=== PATIENT | male | born 1990 | race Hispanic/Latino ===

== ENCOUNTER 2019-05-21 20:51 | Emergency (ER) | payer SELFPAY ==
[~2019-05-21] VITALS: Ht 162.6 cm; Wt 104.3 kg
[2019-05-21 21:42] LABS: ABG PCO2 43 mmHg (41-51); ABG PH 7.36 (7.31-7.41); ABG PO2 90 mmHg (80-105)
[2019-05-21 21:43] LABS: ABG HCO3 25 mmol/L (23-28)
== END 2019-05-21 22:24 | disposition home or self-care (01) ==
LOC: ER 20:51
DX: R42 Dizziness and giddiness (principal); T58.8X1A Toxic effect of carbon monoxide from other source, accidental (unintentional), initial encounter; Y92.008 Other place in unspecified non-institutional (private) residence as the place of occurrence of the external cause
CPT/HCPCS: 36415; 36600; 82805; 83605; 99283

== ENCOUNTER 2020-05-22 18:44 | Emergency (ER) | payer SELFPAY ==
[~2020-05-22] VITALS: Ht 162.6 cm; Wt 108.9 kg
[2020-05-22] MEDS ORDERED: IBUPROFEN 600 MG TAB PO STA (19:01)
[2020-05-22 19:07] VITALS: BP 129/74
[2020-05-22] MEDS ORDERED: IBUPROFEN 600 MG TAB ONE (19:09)
--- NOTE | 2020-05-22 19:29 | Emergency Department Note ---
History of Present Illnes History of Present Illness Chief Complaint: COVID PUI History of Present Illness This is a 30 year old male in from home with complaints of shortness of breath, fever, cough and headache over the last week. Patient reports he tested positive for Covid a week ago and he is still having symptoms. Patient is slightly febrile at 100.6 and tachypneic and tachycardic. Oxygen level 96% on room air.. Historian: Patient Arrival Mode: Car Non Clinical Advisor Required: No Onset (how long ago): week(s) (1) Location: ALL OVER Quality: COUGH, SOB, FEVER, BODY ACHES, HEADACHES Radiation: Reports non-radiation Severity: moderate Onset quality: gradual Duration (how long): week(s) (1) Timing of current episode: constant Progression: unchanged Chronicity: new Context: Reports recent illness (COVID 19 POSITIVE ONE WEEK AGO) Relieving factors: none Exacerbating factors: movement Associated symptoms: Reports cough, Reports fever/chills, Reports headaches, Reports shortness of breath Treatments prior to arrival: none Past Medical/Family History Physician Review I have reviewed the patient's past medical and family history. Any updates have been documented here. Past Medical History Recent Fever: Yes Clinical Suspicion of Infectio: Yes New/Unexplained Change in Ment: No Past Medical History: None Past Surgical History: None Social History Smoking Cessation: Never Smoker Counseling Performed: No Alcohol Use: Occasional Any Illegal Drug Use: No Other Last Tetanus: UTD Any Pre-Existing Lines (PICC,: No Review of Systems Review of Systems Constitutional: Reports as per HPI EENTM: Reports no symptoms Cardiovascular: Reports no symptoms Respiratory: Reports as per HPI Gastrointestinal: Reports no symptoms Genitourinary: Reports no symptoms Musculoskeletal: Reports no symptoms Integumentary: Reports no symptoms Neurological: Reports no symptoms Psychological: Reports no symptoms Endocrine: Reports no symptoms Hematological/Lymphatic: Reports no symptoms Physical Exam Related Data Allergies: Coded Allergies: No Known Allergies (Unverified , 05/21/19) Triage Vital Signs Vital Signs Date Time Temp Pulse Resp B/P (MAP) Pulse Ox O2 Delivery O2 Flow Rate FiO2 05/22/20 18:47 100.6 129 36 146/75 96 Room Air Vital signs reviewed: Yes Physical Exam CONSTITUTIONAL Constitutional: Present well-developed, Present well-nourished; Absent distressed HENT HENT: Present normocephalic, Present atraumatic, Present oropharynx clear/moist, Present nose normal HENT L/R: Present left ext ear normal, Present right ext ear normal EYES Eyes: Reports PERRL, Reports conjunctivae normal NECK Neck: Present ROM normal PULMONARY Pulmonary: Present effort normal, Present respiratory distress (MILD TACHYPNEA RR 29), Present rhonchi (ALL 4 LUNG BRUNNER) CARDIOVASCULAR Cardiovascular: Present regular rhythm, Present heart sounds normal, Present capillary refill normal, Present tachycardia (130) GASTROINTESTINAL Abdominal: Present soft, Present nontender, Present bowel sounds normal GENITOURINARY Genitourinary: Present exam deferred SKIN Skin: Present warm, Present dry MUSCULOSKELETAL Musculoskeletal: Present ROM normal NEUROLOGICAL Neurological: Present alert, Present oriented x 3, Present no gross motor or sensory deficits PSYCHOLOGICAL Psychological: Present mood/affect normal, Present judgement normal Results Laboratory Laboratory Laboratory Tests Test 05/22/20 20:30 05/22/20 20:21 05/22/20 19:45 Arterial Blood pH 7.42 (7.35-7.45) Arterial Blood Partial Pressure CO2 38 mmHg (35-45) Arterial Blood Partial Pressure O2 97 mmHg (80-105) Arterial Blood HCO3 24 mmol/L (22-26) Arterial Blood Total CO2 25 Arterial Blood Oxygen Saturation 98.0 % (95-98) Arterial Blood Base Excess 0.0 mmol/L (-2 - 3) FiO2 32 % Lactic Acid Level 1.5 mmol/L (0.5-2.0) White Blood Count 11.29 x10e3/uL (4.8-10.8) Red Blood Count 5.41 x10e6/uL (4.3-5.7) Hemoglobin 14.9 g/dL (14.0-18.0) Hematocrit 46.3 % (38.2-49.6) Mean Corpuscular Volume 85.6 fL (81-99) Mean Corpuscular Hemoglobin 27.5 pg (28-32) Mean Corpuscular Hemoglobin Concent 32.2 g/dL (31-35) Red Cell Distribution Width 14.3 % (11.7-14.4) Platelet Count 235 x10e3/uL (140-360) Neutrophils (%) (Auto) 77.8 % (38.7-80.0) Lymphocytes (%) (Auto) 17.4 % (18.0-39.1) Monocytes (%) (Auto) 3.6 % (4.4-11.3) Eosinophils (%) (Auto) 0.0 % (0.0-6.0) Basophils (%) (Auto) 0.2 % (0.0-1.0) Neutrophils # (Auto) 8.8 (2.1-6.9) Lymphocytes # (Auto) 2.0 (1.0-3.2) Monocytes # (Auto) 0.4 (0.2-0.8) Eosinophils # (Auto) 0.0 (0.0-0.4) Basophils # (Auto) 0.0 (0.0-0.1) Absolute Immature Granulocyte (auto 0.11 x10e3/uL (0-0.1) Sodium Level 141 mmol/L (136-145) Potassium Level 3.5 mmol/L (3.5-5.1) Chloride Level 104 mmol/L (98-107) Carbon Dioxide Level 24 mmol/L (22-29) Anion Gap 16.5 mmol/L (8-16) Blood Urea Nitrogen 14 mg/dL (7-26) Creatinine 0.87 mg/dL (0.72-1.25) Estimat Glomerular Filtration Rate > 60 ML/MIN (60-) BUN/Creatinine Ratio 16 (6-25) Glucose Level 131 mg/dL (74-118) Calcium Level 8.0 mg/dL (8.4-10.2) Total Bilirubin 0.3 mg/dL (0.2-1.2) Aspartate Amino Transf (AST/SGOT) 53 IU/L (5-34) Alanine Aminotransferase (ALT/SGPT) 156 IU/L (0-55) Alkaline Phosphatase 67 IU/L (40-150) Creatine Kinase 197 IU/L (30-200) Creatine Kinase MB 0.50 ng/mL (0-5.0) Troponin I 0.011 ng/mL (0-0.300) Total Protein 7.6 g/dL (6.5-8.1) Albumin 3.6 g/dL (3.5-5.0) Globulin 4.0 g/dL (2.3-3.5) Albumin/Globulin Ratio 0.9 (0.8-2.0) Coronavirus (PCR) Detected (NOTDETECTED) Lab results reviewed: Yes Imaging Imaging results reviewed: Yes Impressions Procedure: [id number] CT/CT CHEST W Exam Date: Exam Time: REPORT STATUS: Signed EXAM: CT Chest WITH contrast 05/22/2020 8:38 PM INDICATION: ^Y ^PE PROTOCOL COMPARISON: None TECHNIQUE: Chest was scanned utilizing a multidetector helical scanner from the lung apex through the level of the adrenal glands with administration of IV contrast. Coronal and sagittal reformations were obtained. Routine protocol was performed. IV CONTRAST: 100 mL of Omnipaque 300 COMPLICATIONS: None RADIATION DOSE: Total DLP: 421 mGy*cm Estimated effective dose: (DLP x 0.014 x size factor) mSv CTDIvol has been reviewed. It is below the limits set by the Radiation Protocol Committee (RPC). Dose modulation, iterative reconstruction, and/or weight based adjustment of the mA/kV was utilized to reduce the radiation dose to as low as reasonably achievable. FINDINGS: LINES/ TUBES: None. VASCULAR: There are no filling defects within the pulmonary arteries to the segmental level. The main pulmonary artery is dilated measuring 3.1 cm. The ascending and descending aorta have normal enhancement and caliber measuring 3.1 cm and 2.3 cm, respectively. LUNGS AND AIRWAYS: There is multifocal patchy groundglass opacities throughout both lungs most compatible with pneumonia. Airways are normal. PLEURA: The pleural spaces are clear. HEART AND MEDIASTINUM: The thyroid gland is normal. There are multiple prominent mediastinal lymph nodes, none of which meet size criteria for pathologic enlargement. The heart is normal in size. There is no pericardial effusion. UPPER ABDOMEN: There is hepatic steatosis. The remainder of the imaged upper abdomen is unremarkable. BONES: The visualized bony thorax is within normal limits. SOFT TISSUES: Unremarkable. IMPRESSION: 1. No evidence of pulmonary embolism. 2. Multifocal patchy groundglass opacities throughout both lungs most compatible with multifocal pneumonia. Prominent mediastinal lymph nodes are most likely reactive. 3. Mildly dilated pulmonary trunk suggestive of pulmonary arterial hypertension, likely related to multifocal pneumonia. 4. Hepatic steatosis. Signed by: Nanci Wihttaker MD on 05/22/2020 9:27 PM Procedures 12 Lead ECG Interpretation ECG Interpretation : ECG: ECG 1 Non Clinical Advisor: Interpreted by ED physician Date: May 22, 2020 Time: 19:47 Rhythm: sinus tachycardia Rate: tachycardia BPM: 136 ST segments normal: Yes T waves normal: Yes Other findings: no other findings Clinical Impression: non-specific ECG Assessment & Plan Medical Decision Making MDM PT WITH COVID 19 WITH FEVER, COUGH, AND SOB CXR ORDERED TO EVAL FOR MULTIFOCAL PNEUMONIA MOTRIN 600 MG PO ORDERED WALKED PT DOWN [place] AND AFTER ABOUT 10 FEET BECAME VERY SOB, O2 SATURATION DROPPED TO 86% CBC, CMP, CT CHEST, BLOOD CULTURES ORDERED TO EVAL FOR PULMONARY EMBOLISM, LEUKOCYTOSIS, ELECTROLYTE ABNORMALITY ROCEPHIN 1 GRAM IV ORDERED ZITHROMAX 500 MG IV ORDERED DEXAMETHASONE 6 MG IV ORDERED PT WILL REQUIRE TRANSFER TO ANOTHER HOSPITAL NO COVID BEDS ARE AVAILABLE AT THIS FACILITY I SPOKE WITH DR CLARKE AT [facility], HE ACCEPTS PT FOR TRANSFER Assessment & Plan Final Impression: (1) Pneumonia due to COVID-19 virus (2) Fever (3) Hypoxemia requiring supplemental oxygen Depart Disposition: HOME, SELF-CARE Last Vital Signs Date Time Temp Pulse Resp B/P (MAP) Pulse Ox O2 Delivery O2 Flow Rate FiO2 05/22/20 18:47 100.6 129 36 146/75 96 Room Air Medications in the ED Ibuprofen 600 mg STK-MED ONCE .ROUTE ; Start 05/22/20 at 19:09; Stop 05/22/20 at 19:01; Status DC Ibuprofen 600 mg ONCE STAT PO Last administered on 05/22/20at 19:02; Admin Dose 600 MG; Start 05/22/20 at 19:01; Stop 05/22/20 at 19:07; Status DC NATI LAW MD May 22, 2020 19:29
--- OUTSIDE RECORDS SUMMARY | 2020-05-22 19:29 | XMS REPORT | Continuity of Care Document ---
Author Author [facility] Organization [facility] Address [address] [place] [address] Phone Unavailable Care Team Providers Care Test Borer Name Role Phone NO, PCP PCP Unavailable Problems This patient has no known problems. Allergies, Adverse Reactions, Alerts This patient has no known allergies or adverse reactions. Medications This patient has no known medications. Procedures This patient has no known procedures. Encounters Start Date/Time End Date/Time Encounter Type Admission Type [facility] Care Department Encounter ID Source 2019-05-21 20:51:00 2019-05-21 22:24:00 Departed Emergency Room [facility] [id number] [facility] Results Test Description Test Time Test Comments Results Result Comments Source Lactic Acid Level 2019-05-21 21:55:00 Test Item Lactic Acid Level (test code = Lactic Acid Level) 1.4 0.5- [facility].[address] [facility] [id number] 21:43:00* Test Item Value Reference Range Interpretation Comments Arterial Blood pH (test code = 2744-1) 7.36 7.31-7.[address] [facility] Partial Pressure CO2 2019-05-21 21:43:00* Test Item Value Reference Range Interpretation Comments Arterial Blood Partial Pressure CO2 (test code = 2018-) 43 41-[address] Partial Pressure O2 2019-05-21 21:43:00* Test Item Value Reference Range Interpretation Comments Arterial Blood Partial Pressure O2 (test code = 2019-01) 90 80-[address] [id number] 21:43:00* Test Item Value Reference Range Interpretation Comments Arterial Blood HCO3 (test code = 1960-4) 25 23-[address] [facility] Base [id number] 21:43:00* Test Item Value Reference Range Interpretation Comments Arterial Blood Base Excess (test code = 1925-7) -1.0 -2-[address] Oxygen Saturation 2019-05-21 21:43:00* Test Item Value Reference Range Interpretation Comments Arterial Blood Oxygen Saturation (test code = 2708-6) 97.0 95-[address] [facility]2019-12-01 21:43:00* Test Item Value Reference Range Interpretation Comments FiO2 (test code = FiO2) 21 PT. ON RACHI [facility]
--- NOTE | 2020-05-22 19:45 | NUR ---
TRANSFER INITIATED TO [facility], SPOKE TO RAVINDRA
[2020-05-22] MEDS ORDERED: DEXAMETHASONE SOD PHOS INJ 4 MG/ML VIAL IV ONE (20:00)
[2020-05-22] MEDS ORDERED: CEFTRIAXONE SOD 1 GM/NS 50 ML 50 ML IV ONE (20:00)
[2020-05-22] MEDS ORDERED: AZITHROMYCIN 500MG/NS 250 ML 250 ML IV ONE (20:00)
[2020-05-22 20:05] LABS: BASOPHILS % 0.2 % (0.0-1.0); HEMATOCRIT 46.3 % (38.2-49.6); HEMOGLOBIN 14.9 g/dL (14.0-18.0); LYMPHOCYTES % 17.4 % (18.0-39.1); MEAN CORPUSCULAR HEMOGLOBIN 27.5 pg (28-32); MEAN CORPUSCULAR HGB CONC 32.2 g/dL (31-35); MEAN CORPUSCULAR VOLUME 85.6 fL (81-99); MONOCYTES # (AUTO) 0.4 (0.2-0.8); MONOCYTES % 3.6 % (4.4-11.3); NEUTROPHILS # (AUTO) 8.8 (2.1-6.9); NEUTROPHILS % 77.8 % (38.7-80.0); PLATELET COUNT 235 x10e3/uL (140-360); RED BLOOD COUNT 5.41 x10e6/uL (4.3-5.7); RED CELL DISTRIBUTION WIDTH 14.3 % (11.7-14.4)
--- NOTE | 2020-05-22 20:17 | Diagnostic Imaging Report ---
EXAMINATION: CHEST SINGLE (PORTABLE) INDICATION: ^Y ^covid, sob ^20200522 ^1919 COMPARISON: None FINDINGS: TUBES and LINES: None. LUNGS: There is multifocal interstitial and patchy airspace opacities throughout both lungs. PLEURA: No pleural effusion or pneumothorax. HEART AND MEDIASTINUM: The cardiomediastinal silhouette is unremarkable. BONES AND SOFT TISSUES: No acute osseous lesion. Soft tissues are unremarkable. UPPER ABDOMEN: No free air under the diaphragm. IMPRESSION: Diffuse interstitial and patchy airspace opacities throughout both lungs most compatible with multifocal pneumonia, likely viral. Signed by: Nanci Whittaker MD on 05/22/2020 8:13 PM
[2020-05-22 20:21] LABS: ALANINE AMINOTRANSFERASE 156 IU/L (0-55); ALBUMIN 3.6 g/dL (3.5-5.0); ALBUMIN/GLOBULIN RATIO 0.9 (0.8-2.0); ALKALINE PHOSPHATASE 67 IU/L (40-150); ANION GAP 16.5 mmol/L (8-16); BLOOD UREA NITROGEN 14 mg/dL (7-26); BUN/CREATININE RATIO 16 (6-25); CARBON DIOXIDE 24 mmol/L (22-29); CHLORIDE 104 mmol/L (98-107); CREATINE KINASE 197 IU/L (30-200); CREATININE, SERUM 0.87 mg/dL (0.72-1.25); EST GLOMERULAR FILTRATION RATE > 60 ML/MIN (60-); GLUCOSE 131 mg/dL (74-118); POTASSIUM 3.5 mmol/L (3.5-5.1); SODIUM 141 mmol/L (136-145)
[2020-05-22 21:06] LABS: ABG HCO3 24 mmol/L (22-26); ABG PCO2 38 mmHg (35-45); ABG PH 7.42 (7.35-7.45); ABG PO2 97 mmHg (80-105); ABG TCO2 25
[2020-05-22] MEDS ORDERED: ACETAMINOPHEN 325 MG TAB PO ONE (21:15)
--- NOTE | 2020-05-22 21:30 | Diagnostic Imaging Report ---
EXAM: CT Chest WITH contrast 05/22/2020 8:38 PM INDICATION: ^Y ^PE PROTOCOL COMPARISON: None TECHNIQUE: Chest was scanned utilizing a multidetector helical scanner from the lung apex through the level of the adrenal glands with administration of IV contrast. Coronal and sagittal reformations were obtained. Routine protocol was performed. IV CONTRAST: 100 mL of Omnipaque 300 COMPLICATIONS: None RADIATION DOSE: Total DLP: 421 mGy*cm Estimated effective dose: (DLP x 0.014 x size factor) mSv CTDIvol has been reviewed. It is below the limits set by the Radiation Protocol Committee (RPC). Dose modulation, iterative reconstruction, and/or weight based adjustment of the mA/kV was utilized to reduce the radiation dose to as low as reasonably achievable. FINDINGS: LINES/ TUBES: None. VASCULAR: There are no filling defects within the pulmonary arteries to the segmental level. The main pulmonary artery is dilated measuring 3.1 cm. The ascending and descending aorta have normal enhancement and caliber measuring 3.1 cm and 2.3 cm, respectively. LUNGS AND AIRWAYS: There is multifocal patchy groundglass opacities throughout both lungs most compatible with pneumonia. Airways are normal. PLEURA: The pleural spaces are clear. HEART AND MEDIASTINUM: The thyroid gland is normal. There are multiple prominent mediastinal lymph nodes, none of which meet size criteria for pathologic enlargement. The heart is normal in size. There is no pericardial effusion. UPPER ABDOMEN: There is hepatic steatosis. The remainder of the imaged upper abdomen is unremarkable. BONES: The visualized bony thorax is within normal limits. SOFT TISSUES: Unremarkable. IMPRESSION: 1. No evidence of pulmonary embolism. 2. Multifocal patchy groundglass opacities throughout both lungs most compatible with multifocal pneumonia. Prominent mediastinal lymph nodes are most likely reactive. 3. Mildly dilated pulmonary trunk suggestive of pulmonary arterial hypertension, likely related to multifocal pneumonia. 4. Hepatic steatosis. Signed by: Nanci Whittaker MD on 05/22/2020 9:27 PM
[2020-05-22] MEDS ORDERED: SODIUM CHLORIDE 0.9% 50ML 50 ML ONE (21:32)
[2020-05-22] MEDS ORDERED: IOPAMIDOL 370 MG/ML 200 ML INFUS..BTL INJ ONE (21:32)
== END 2020-05-22 23:19 | disposition other institution (70) ==
LOC: ER 19:01
DX: U07.1 COVID-19 (principal); J18.9 Pneumonia, unspecified organism; R50.9 Fever, unspecified; R09.02 Hypoxemia; R05 Cough; K76.0 Fatty (change of) liver, not elsewhere classified
CPT/HCPCS: 36415; 36600; 71045; 71260; 80053; 82550; 82553; 82805; 83605; 84484; 85025; 87040; 93005; 99284; J0456; J0696; J1100; Q9967; U0002